=== PATIENT | male | born 1960 | race Caucasian/White ===

== ENCOUNTER 2017-01-22 22:17 | Emergency (ER) | payer OTHER ==
--- NOTE | 2017-01-23 00:18 | ER Document Report ---
ED General - General Mode of Arrival: Wheelchair Information source: Patient TRAVEL OUTSIDE OF THE [place] IN LAST 30 DAYS: No - HPI Onset: Just prior to arrival Quality of pain: Achy Associated symptoms: None - General Chief Complaint: Knee Injury Stated Complaint: FALL/RIGHT KNEE, LEFT SHOULDER PAIN Notes: Patient is a 56-year-old male that presents to the emergency department today with complaints of right knee pain. Patient states while at work today, he tripped over a box landing on his right knee and left shoulder. Patient states that initially upon arrival to the ED his right knee was the only thing that hurt him however after arriving here in the emergency department he has developed some left shoulder pain as well. Patient denies any loss of consciousness during this fall. Patient did not hit his head. (SHAKILA GU) - Related Data Allergies/Adverse Reactions: No Known Allergies Allergy (Verified 08/07/15 09:46) Past Medical History - General Information source: [facility] Records - Social History Smoking Status: Never Smoker Cigarette use (# per day): No Frequency of alcohol use: None Drug Abuse: None Lives with: Family Family History: Reviewed & Not Pertinent Patient has suicidal ideation: No Patient has homicidal ideation: No - Medical History Medical History: Negative Past Surgical History: Reports: Hx Orthopedic Surgery - 3rd digit right hand, TRAUMATIC AMPUTATION TIP OF FINGER., Hx Vascular Surgery - RIGHT LEG VEIN STRIPPING. - Immunizations Hx Diphtheria, Pertussis, Tetanus Vaccination: - unk Review of Systems - Review of Systems Constitutional: No symptoms reported EENT: No symptoms reported Cardiovascular: No symptoms reported Respiratory: No symptoms reported Gastrointestinal: No symptoms reported Genitourinary: No symptoms reported Male Genitourinary: No symptoms reported Musculoskeletal: See HPI, Joint pain - left shoulder and right knee pain Skin: No symptoms reported Hematologic/Lymphatic: No symptoms reported Neurological/Psychological: denies: Lost consciousness -: Yes All other systems reviewed and negative Physical Exam - Vital signs Vitals: Temp Pulse Resp BP Pulse Ox 97.8 F 72 16 153/93 H 100 01/22/17 22:22 01/22/17 22:22 01/22/17 22:22 01/22/17 22:22 01/22/17 22:22 - Notes Notes: Physical Exam: General: Alert, appears well. HEENT: Normocephalic. Atraumatic. PERRL. Extraocular movements intact. Oropharynx clear. Neck: Supple. Non-tender. Respiratory: No respiratory distress. Clear and equal breath sounds bilaterally. Cardiovascular: Regular rate and rhythm. Abdominal: Normal Inspection. Non-tender. No distension. Normal Bowel Sounds. Back: Non-tender. No deformity or step off. Extremities: Moves all four extremities. Upper extremities: Normal inspection. Normal ROM. Lower extremities: Normal inspection. No edema. Normal ROM. Neurological: Normal cognition. AAOx4. Normal speech. Psychological: Normal affect. Normal Mood. Skin: Warm. Dry. Normal color. (SHAKILA GU) Course - Re-evaluation Re-evalutation: 01/23/17 02:12 Patient presents emergency Department chief complaint of left knee pain and left shoulder pain. Says he was at work tripped over a box and fell. He did not hit his head or lose consciousness initially on arrival his knee was the only thing that was bothering him and his shoulder began to bother him after he came back from x-ray. He denies any head neck chest back or abdominal tenderness no previous injury to the head neck back shoulder or knee. On physical examination he has mild tenderness the anterior aspect of the left shoulder full range of motion without any difficulty no redness swelling or deformity or bony tenderness good radial or axillary median nerve intact pulses and perfusion are normal. X-ray examination of the knee no acute swelling deformity ecchymosis contusion or abrasion no ligamentous instability Tenderness hip thigh lower extremity ankle or joint pain. Acute x-ray of the shoulder and the knee are both negative for acute pathology. Given a knee immobilizer Motrin ice elevation and follow primary care physician in 2-3 days and discussed reasons for ED return sooner (LUCIE QUINONEZ) - Vital Signs Vital signs: Temp Pulse Resp BP Pulse Ox 98.0 F 67 18 127/90 H 96 01/23/17 01:41 01/23/17 01:41 01/23/17 01:41 01/23/17 01:41 01/23/17 01:41 Discharge - Discharge Clinical Impression: acute right knee sprain, acute left shoulder strain Condition: Stable Disposition: HOME, SELF-CARE Instructions: Knee Immobilizing Splint ([facility]) Additional Instructions: Sprain Your injury is a sprain. A sprain results from stretching or tearing of the ligaments, usually from a twisting injury. The ligaments will require time and protection in order to heal properly. Many sprains are quite disabling and should be taken seriously. The usual initial treatment of sprains is cold packs, elevation, and rest of the injured area. Your physician has assessed the seriousness of your ligament injury, and has outlined a treatment plan. Understand that this treatment may change, depending on how you progress. If a re-examination was recommended, it is important that you follow up as instructed. Call the doctor any time if there is severe pain, numbness, or loss of function in the injured area. Prescriptions: Ibuprofen [Motrin 600 Mg Tablet] 600 mg PO TID #12 tablet Referrals: KATYA PARRA MD [Primary Care Provider] - Follow up in 3-5 days (Return to the ER sooner for increasing worsening or new symptom) Scribe Attestation: 01/23/17 01:18 I personally performed the services described in the documentation reviewed the documentation recorded by my scribe in my presence and it accurately and completely records my words and actions (LUCIE QUINONEZ) Scribe Documentation - Scribe Written by Diane:: Diane Wills, [id number] 01/23/2017 acting as scribe for :: Jaron
[2017-01-23] MEDS ORDERED: IBUPROFEN 600 MG TABLET PO ONE (01:17)
[2017-01-23 01:46] VITALS: BP 127/90
== END 2017-01-23 01:46 | disposition home or self-care (01) ==
LOC: ER 22:17
DX: S83.91XA Sprain of unspecified site of right knee, initial encounter (principal); S46.912A Strain of unspecified muscle, fascia and tendon at shoulder and upper arm level, left arm, initial encounter; M25.561 Pain in right knee; M25.512 Pain in left shoulder; W19.XXXA Unspecified fall, initial encounter
CPT/HCPCS: 99283; 73564; 73030; L1830

== ENCOUNTER → 2019-08-10 | Outpatient (CLI) | payer OTHER ==
--- NOTE | 2019-08-10 15:30 | RADIOLOGY REPORT (SQ) ---
EXAM DESCRIPTION: CT LUNG CANCER SCREENING COMPLETED DATE/TIME: 08/10/2019 10:12 am REASON FOR STUDY: TOBACCO DEPENDENCE Has the patient had a Chest CT scan within the past year? N Was the patient offered tobacco cessation counseling? N Was the patient engaged in shared decision making for this test? Y Does the patient have signs or symptoms of Lung Cancer? N Is the patient a smoker? N How many pack years? 44 How many years since quitting smoking? 3 Patients age: 59 COMPARISON: None. TECHNIQUE: Low Dose CT scan performed of the chest without intravenous contrast for purposes of scre ening for lung cancer. Images reviewed with lung, soft tissue and bone windows. Reconstructed coron al and sagittal MPR images reviewed. All images stored on PACS. All CT scanners at this facility use dose modulation, iterative reconstruction, and/or weight based d osing when appropriate to reduce radiation dose to as low as reasonably achievable (ALARA). [facility]: Dose Right [facility]: CareDose [facility]: Dose Right [facility]: Teradose 4D [facility]: [employer] RADIATION DOSE: CT Rad equipment meets quality standard of care and radiation dose reduction techniq ues were employed. CTDIvol: NaN mGy. DLP: 0 mGy-cm. mGy. . LIMITATIONS: None FINDINGS: LUNGS AND PLEURA: No masses or nodules. No pleural effusions or calcifications. No pne umothorax. No scarring or interstitial changes. HILAR AND MEDIASTINAL STRUCTURES: No identified masses. No abnormal nodes. HEART AND VASCULAR STRUCTURES: No aortic aneurysm. No pericardial effusion. No cardiac devices. CORONARY ARTERY CALCIFICATIONS: Mild to moderate calcifications. UPPER ABDOMEN, THYROID, BONES, OTHER SOFT TISSUES: No significant findings. IMPRESSION: NO SIGNIFICANT FINDING IN THE LUNGS ON NON-CONTRASTED CHEST CT. NO OTHER CLINICALLY SIGNIFICANT/POTENTIALLY CLINICALLY SIGNIFICANT FINDINGS LUNGRADS: LUNGRADS: 1 NEGATIVE. NO NODULES, OR DEFINITELY BENIGN NODULES MODIFIER: NONE RECOMMENDATION: Continue annual screening with LDCT in 12 months. COMMENT: CRITERIA: No lung nodules. Nodules with specific calcifications: Complete, central, popcorn, concentric rings and fat containin g nodules. TECHNICAL DOCUMENTATION: JOB ID: [id number] Quality ID # [id number]: Final reports with documentation of one or more dose reduction techniques (e.g., Au tomated exposure control, adjustment of the mA and/or kV according to patient size, use of iterative reconstruction technique) 2010 [facility] Emergency Department Radiology Reading location - IP/workstation name: [email or web address]
== END ==
LOC: RAD 09:40
PROVIDERS: ATTEND Clinical Nurse Specialist Adult Health
DX: Z87.891 Personal history of nicotine dependence (principal)
CPT/HCPCS: G0297

== ENCOUNTER 2019-09-15 10:49 | Emergency (ER) | payer OTHER ==
[2019-09-15] MEDS ORDERED: TETRACAINE HCL 0.5% OPH SOLN 4 ML OD ONE (12:48)
--- NOTE | 2019-09-15 12:51 | ER Document Report ---
ED Medical Screen (RME) - General Chief Complaint: Foreign Body in Eye Stated Complaint: FOREIGN OBJECT IN EYE Time Seen by Provider: 09/15/19 12:43 Primary Care Provider: FILIPE GEORGE NP [Primary Care Provider] - Follow up as needed Notes: Patient is a 59-year-old male presents emergency department with a chief complaint of left eye pain. 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 Patient reports he is made multiple attempts to flush his eye with saline but feels like there is something stuck on the left side of his eye underneath the eyelid. Patient reports intermittent blurred vision but reports that he is not sure if this is due to the straining. Patient states he was wearing a welding helmet at that time but this was flipped in the upward position and not covering his eye. Patient reports that he has had multiple foreign bodies in his eye but that this is different. TRAVEL OUTSIDE OF THE [place] IN LAST 30 DAYS: No - Related Data Allergies/Adverse Reactions: No Known Allergies Allergy (Verified 09/15/19 12:42) Past Medical History Renal/ Medical History: Denies: Hx Peritoneal Dialysis Past Surgical History: Reports: Hx Orthopedic Surgery - 3rd digit right hand, TRAUMATIC AMPUTATION TIP OF FINGER., Hx Vascular Surgery - RIGHT LEG VEIN STRIPPING. - Immunizations Hx Diphtheria, Pertussis, Tetanus Vaccination: - unk Physical Exam - Vital signs Vitals: Temp Pulse Resp BP Pulse Ox 97.7 F 82 18 154/93 H 99 09/15/19 11:00 09/15/19 11:00 09/15/19 11:00 09/15/19 11:00 09/15/19 11:00 Course - Re-evaluation Re-evalutation: 09/15/19 12:51 I have greeted and performed a rapid initial assessment of this patient. A comprehensive ED assessment and evaluation of the patient, analysis of test results and completion of the medical decision making process will be conducted by additional ED providers. - Vital Signs Vital signs: Temp Pulse Resp BP Pulse Ox 97.7 F 82 18 154/93 H 99 09/15/19 11:00 09/15/19 11:00 09/15/19 11:00 09/15/19 11:00 09/15/19 11:00 Doctor's Discharge - Discharge Referrals: FILIPE GEORGE STUNT PERSON [Primary Care Provider] - Follow up as needed
--- NOTE | 2019-09-15 16:53 | ER Document Report ---
HPI - HPI Time Seen by Provider: 09/15/19 12:43 Pain Level: 2 Context: Patient is a 59-year-old male presents emergency department with a chief complaint of left eye pain. 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 Patient reports he is made multiple attempts to flush his eye with saline but feels like there is something stuck on the left side of his eye underneath the eyelid. Patient reports intermittent blurred vision but reports that he is not sure if this is due to the straining. Patient states he was wearing a welding helmet at that time but this was flipped in the upward position and not covering his eye. Patient reports that he has had multiple foreign bodies in his eye but that this is different. - EENT EENT: REPORTS: Eye problems - NEURO Neurology: REPORTS: Headache, Vision blurred Past Medical History - General Information source: Patient - Social History Smoking Status: Former Smoker Chew tobacco use (# tins/day): No Frequency of alcohol use: Occasional Drug Abuse: None Lives with: Family Family History: Reviewed & Not Pertinent Patient has suicidal ideation: No Patient has homicidal ideation: No - Past Medical History Cardiac Medical History: Reports: None Pulmonary Medical History: Reports: None EENT Medical History: Reports: None Neurological Medical History: Reports: None Endocrine Medical History: Reports: None Renal/ Medical History: Reports: None. Denies: Hx Peritoneal Dialysis Malignancy Medical History: Reports None GI Medical History: Reports: None Musculoskeletal Medical History: Reports None Skin Medical History: Reports None Psychiatric Medical History: Reports: None Traumatic Medical History: Reports: None Infectious Medical History: Reports: None Past Surgical History: Reports: Hx Orthopedic Surgery - 3rd digit right hand, TRAUMATIC AMPUTATION TIP OF FINGER., Hx Vascular Surgery - RIGHT LEG VEIN STRIPPING. - Immunizations Hx Diphtheria, Pertussis, Tetanus Vaccination: - unk Vertical Provider Document - CONSTITUTIONAL Agree With Documented VS: Yes Exam Limitations: No Limitations General Appearance: No Apparent Distress - INFECTION CONTROL TRAVEL OUTSIDE OF THE [place] IN LAST 30 DAYS: No - HEENT HEENT: Atraumatic, Normal ENT Exam, Normocephalic, PERRLA - RESPIRATORY Respiratory: Breath Sounds Normal, No Respiratory Distress - CARDIOVASCULAR Cardiovascular: Regular Rate, Regular Rhythm - GI/ABDOMEN Gastrointestinal: Abdomen Soft, Abdomen Non-Tender, Normal Bowel Sounds - MUSCULOSKELETAL/EXTREMETIES Musculoskeletal/Extremeties: FROM, Non-Tender - NEURO Level of Consciousness: Awake, Alert, Appropriate - DERM Integumentary: Warm, Dry, No Rash Course - Re-evaluation Re-evalutation: 09/15/19 17:11 We will treat the patient with erythromycin ointment, 4 times daily for the next 5 days. I did inform the patient to follow-up with an special education curriculum specialist within the next few days for reevaluation. Patient was given strict return precautions. Patient and verbalized understanding. Patient left in no acute distress. - Vital Signs Vital signs: Temp Pulse Resp BP Pulse Ox 97.7 F 82 18 154/93 H 99 09/15/19 11:00 09/15/19 11:00 09/15/19 11:00 09/15/19 11:00 09/15/19 11:00 Procedures - Eye Procedure Bilateral Time completed: 16:00 Fluorescein applied: Bilateral Slit lamp used: Yes Notes: 09/15/19 17:09 Tetracaine drops were applied to bilateral eyes. Right eye pressures 14/95% and 14/95%, left eye pressure 16/95% and 17/95%. Patient's visual acuity as do cumented by the therapeutic support staff. Patient does not have any eye drainage. Eyes PERRLA bilaterally at 3 mm. Eyes were stained with fluorsene. There was injection and uptake noted to the left lateral eye at the 3 o'clock position. No uptake noted on the cornea. No foreign body noted. The slit lamp was used with the assistance of Dr. Worrell which did not reveal any acute abnormality or foreign body. Eyes picture: 1 - Scleral injection noted with floor seen uptake. Discharge - Discharge Clinical Impression: Scleral injection Abrasion of sclera of left eye Qualifiers: Encounter type: initial encounter Qualified Code(s): S05.8X2A - Other injuries of left eye and orbit, initial encounter Condition: Stable Disposition: HOME, SELF-CARE Additional Instructions: *Today was seen in the emergency department for a possible foreign body to your eye. During your examination there was no obvious foreign body but it does appear that the white part of your eye is irritated, slightly swollen and that you have scratched it with the foreign body that was potentially there. You are being treated with antibiotic drops to take as prescribed. Please follow-up with the special education curriculum specialist. Also use rewetting drops. You should start to feel better over the next 24 to 48 hours after initiation of the antibiotic drops. Please call the special education curriculum specialist tomorrow to have a reevaluation. If you develop any new or worsening symptoms please return to the emergency department. Referrals: JUAN MANUEL CROSS MD [ACTIVE STAFF] - Follow up as needed STEPHEN CHEUNG MD [ACTIVE STAFF] - Follow up as needed STEPHEN JARAMILLO, OD [NO LOCAL MD] - Follow up as needed KAUSHIK PARADA DO [ACTIVE STAFF] - Follow up as needed MARIE SOLIS DO [ACTIVE STAFF] - Follow up as needed
[2019-09-15 17:10] VITALS: BP 131/96
[2019-09-15] MEDS ORDERED: ERYTHROMYCIN 0.5% OPH OINTMENT 3.5 GM (ER DISP) OS SCH (18:00)
== END 2019-09-15 17:12 | disposition home or self-care (01) ==
LOC: ER 10:49
DX: S05.8X2A Other injuries of left eye and orbit, initial encounter (principal); H57.12 Ocular pain, left eye; R51 Headache; H53.8 Other visual disturbances; X58.XXXA Exposure to other specified factors, initial encounter
CPT/HCPCS: 99283; J3490